=== PATIENT | female | born 1985 | race Two or more races ===

== ENCOUNTER 2019-01-24 08:58 | Outpatient (CLI) | payer OTHER | END 2019-01-24 09:07 | disposition home or self-care (01) | LOC: MAMO-SONO 08:58 | DX: Z12.31 Encounter for screening mammogram for malignant neoplasm of breast (principal); Z87.898 Personal history of other specified conditions; N60.11 Diffuse cystic mastopathy of right breast; N60.12 Diffuse cystic mastopathy of left breast ==

== ENCOUNTER 2019-09-05 09:01 | Outpatient (CLI) | payer OTHER | END 2019-09-05 09:03 | disposition home or self-care (01) | LOC: MAMO-SONO 09:01 | PROVIDERS: ATTEND Obstetrics & Gynecology | DX: Z12.31 Encounter for screening mammogram for malignant neoplasm of breast (principal); N64.4 Mastodynia; N63.10 Unspecified lump in the right breast, unspecified quadrant; N63.20 Unspecified lump in the left breast, unspecified quadrant ==

== ENCOUNTER 2020-03-19 09:43 | Outpatient (CLI) | payer OTHER | END 2020-03-19 10:04 | disposition home or self-care (01) | LOC: SONOGRAMA 09:43 | PROVIDERS: ATTEND Obstetrics & Gynecology | DX: N60.01 Solitary cyst of right breast (principal); N64.59 Other signs and symptoms in breast ==

== ENCOUNTER 2020-09-17 12:53 | Outpatient (CLI) | payer OTHER | END 2020-09-17 12:55 | disposition home or self-care (01) | LOC: SONOGRAMA 12:53 → MAMO-SONO 13:15 | PROVIDERS: ATTEND Obstetrics & Gynecology | DX: N64.4 Mastodynia (principal) ==